=== PATIENT | female | born 1950 | race Caucasian/White ===

== ENCOUNTER 2018-04-11 10:54 | Emergency (ER) | payer MEDICARE, MEDICAID ==
[~2018-04-11] VITALS: Ht 162.6 cm; Wt 70.0 kg
[~2018-04-11 10:54] MED LIST: ATOR40TA70 PO; INSHUMSS SUBCUT; Lantus SQ; METF-414 PO
[2018-04-11 12:00] LABS: BASOPHILS % 0.7 % (0.0-2.0); EOSINOPHILS % 2.2 % (0.0-5.0); HEMATOCRIT. 33.7 % (36.0-48.0); HEMOGLOBIN. 11.3 g/dL (12.0-16.0); LYMPHOCYTES % 30.2 % (20.0-50.0); MEAN CORPUSCULAR HEMOGLOBIN 29.2 pg (28.0-32.0); MEAN CORPUSCULAR VOLUME 87.3 fL (81.0-99.0); MEAN PLATELET VOLUME 8.9 fl (7.4-10.4); MONOCYTES % 6.8 % (2.0-8.0); NEUTROPHILS % 60.1 % (40.0-76.0); PLATELET 306 x1000/uL (130-400); RED BLOOD CELL COUNT 3.86 mill/uL (4.2-5.4); RED CELL DISTRIBUTION WIDTH 13.3 % (11.6-14.6)
[2018-04-11 12:02] LABS: CHLORIDE 104 mEq/L (98-107)
[2018-04-11 21:17] VITALS: BP 134/57
== END 2018-04-11 21:19 | disposition home or self-care (01) ==
LOC: ER 10:54
DX: E11.649 Type 2 diabetes mellitus with hypoglycemia without coma (principal); T38.3X5A Adverse effect of insulin and oral hypoglycemic [antidiabetic] drugs, initial encounter; Z79.4 Long term (current) use of insulin; Y92.89 Other specified places as the place of occurrence of the external cause; I10 Essential (primary) hypertension
CPT/HCPCS: 36415; 71045; 82962; 83880; 84484; 93005; 99284

== ENCOUNTER 2018-04-15 10:39 | Inpatient (IN) | payer MEDICARE, MEDICAID ==
[2018-04-15] VITALS (32 sets, daily range): BP systolic 101–160; BP diastolic 56–88
[~2018-04-15] VITALS: Ht 167.6 cm; Wt 80.1 kg
[~2018-04-15 10:39] MED LIST changes: +ETOMIDATE 2MG/ML 10ML VIAL IV ONE; +SUCCINYLCHOLINE CHLORIDE 200MG/10ML IV ONE
[2018-04-15] MEDS ORDERED: DEXTROSE 50% WATER 50ML SYRINGE IV ONE ×4 (10:50→15:52)
[2018-04-15] MEDS ORDERED: DEXT 5%/0.45% NACL KCL 20MEQ/L 1,000 ML IV ONE (10:56)
[2018-04-15] MEDS ORDERED: LORAZEPAM 2MG/ML CPJ IV PRN ×3 (11:15→16:00)
[2018-04-15] MEDS ORDERED: SODIUM CHLORIDE 0.9% 1,000 ML IV ONE (11:30)
[2018-04-15 11:35] LABS: BASOPHILS % 0.2 % (0.0-2.0); EOSINOPHILS % 0.2 % (0.0-5.0); HEMATOCRIT. 34.9 % (36.0-48.0); HEMOGLOBIN. 11.8 g/dL (12.0-16.0); LYMPHOCYTES % 10.2 % (20.0-50.0); MEAN CORPUSCULAR HEMOGLOBIN 29.6 pg (28.0-32.0); MEAN CORPUSCULAR VOLUME 87.8 fL (81.0-99.0); MEAN PLATELET VOLUME 8.2 fl (7.4-10.4); MONOCYTES % 4.8 % (2.0-8.0); NEUTROPHILS % 84.6 % (40.0-76.0); PLATELET 336 x1000/uL (130-400); RED BLOOD CELL COUNT 3.98 mill/uL (4.2-5.4); RED CELL DISTRIBUTION WIDTH 13.1 % (11.6-14.6)
[2018-04-15 11:37] LABS: CHLORIDE 104 mEq/L (98-107)
[2018-04-15] MEDS ORDERED: FENTANYL IV ONE (11:45)
[2018-04-15] MEDS ORDERED: FENTANYL CITRATE/PF 50MCG/ML 2ML VIAL IV ONE (11:45)
[2018-04-15] MEDS ORDERED: SODIUM CHLORIDE 0.9% IV ONE (11:45)
[2018-04-15] MEDS ORDERED: ETOMIDATE 2MG/ML 10ML VIAL IV ONE (11:45)
[2018-04-15] MEDS ORDERED: SUCCINYLCHOLINE CHLORIDE 200MG/10ML IV ONE (11:45)
[2018-04-15] MEDS ORDERED: PROPOFOL 10MG/ML 100ML 100 ML IV ONE (11:45)
[2018-04-15 11:46] LABS: CREATINE KINASE 238 IU/L (26-192)
[2018-04-15 12:54] LABS: BG BASE EXCESS -1.2 mmol/L (-2.0-2.0); BG CARBOXYHEMOGLOBIN 0.3 % (0.5-1.5); BG FRACTION INSPIRED OXYGEN 50; BG METHEMOGLOBIN 0.2 % (0.0-1.5); BG OXYHEMOGLOBIN 98.5 % (94.0-97.0); BG PCO2 27.4 mmHg (35.0-45.0); BG PH 7.503 (7.350-7.450); BG PO2 229.9 mmHg (75.0-100.0); BG SAMPLE SITE RIGHT RADIAL; BG TIDAL VOLUME(mL) 500 mL; BG TOTAL HEMOGLOBIN 10.9 g/dL (12.0-18.0); BG VENT MODE VENT - A/C; BG VENT RATE 14 set
[2018-04-15 13:14] LABS: CLARITY URINE CLOUDY (CLEAR); COLOR URINE YELLOW (YELLOW); KETONES URINE NEGATIVE (NEGATIVE); LEUKOCYTE ESTERASE URINE TRACE (NEGATIVE); NITRITE URINE NEGATIVE (NEGATIVE); OCCULT BLOOD URINE TRACE (NEGATIVE); PH URINE 6.5 (4.5-8.0); PROTEIN URINE TRACE (NEGATIVE); SPECIFIC GRAVITY URINE 1.015 (1.005-1.030); UROBILINOGEN URINE 0.2 E.U./dL (0.2-1.0)
[2018-04-15] MEDS ORDERED: DEXT 5%/0.45% NACL 1000ML 1,000 ML IV SCH (15:56)
[2018-04-15] MEDS ORDERED: DIPHENHYDRAMINE 50MG/ML VIAL IV PRN (16:00)
[2018-04-15] MEDS ORDERED: ONDANSETRON HCL 4MG/2ML INJ IV PRN (16:00)
[2018-04-15] MEDS ORDERED: HYDROCODONE/ACETAMINOPHEN 5/325MG TABLET PO PRN (16:00)
[2018-04-15] MEDS ORDERED: DOCUSATE SODIUM 100MG CAPSULE PO PRN (16:00)
[2018-04-15] MEDS: BLOOD SUGAR DIAGNOSTIC STRIP TEST SCH ×7 (16:00→22:06)
[2018-04-15] MEDS ORDERED: ACETAMINOPHEN 325MG TABLET PO PRN (16:00)
[2018-04-15] MEDS ORDERED: MAGNESIUM/ALUMINUM HYDROXIDE/SIMETHICONE 30ML UDC PO PRN (16:00)
[2018-04-15] MEDS ORDERED: DEXTROSE 50% WATER 50ML SYRINGE IV PRN ×2 (16:00)
[2018-04-15] MEDS ORDERED: HYDROMORPHONE HCL/PF 2MG/ML CPJ IV PRN (16:00)
[2018-04-15] MEDS ORDERED: NA PHOS,M-B/NA PHOS,DI-BA ENEMA 118ML PR PRN (16:00)
[2018-04-15] MEDS ORDERED: GUAIFENESIN 200MG/10ML SUGAR FREE UDC PO PRN (16:00)
[2018-04-15 16:26] LABS: BG BASE EXCESS 0.1 mmol/L (-2.0-2.0); BG DEOXYHEMOGLOBIN 1.1 % (0.0-5.0); BG FRACTION INSPIRED OXYGEN 30; BG HCO3 ACT 22.5 mmol/L (22.0-26.0); BG METHEMOGLOBIN 0.3 % (0.0-1.5); BG OXYGEN SATURATION 98.9 % (92.0-98.5); BG OXYHEMOGLOBIN 98.6 % (94.0-97.0); BG PCO2 29.4 mmHg (35.0-45.0); BG PH 7.502 (7.350-7.450); BG PO2 144.2 mmHg (75.0-100.0); BG SAMPLE SITE RIGHT RADIAL; BG TIDAL VOLUME(mL) 500 mL; BG TOTAL HEMOGLOBIN 11.2 g/dL (12.0-18.0); BG VENT MODE VENT - A/C; BG VENT RATE 12 set
[2018-04-15 17:35] LABS: CHLORIDE 105 mEq/L (98-107)
[2018-04-15] MEDS: THIAMINE HCL 100MG TABLET PO SCH (18:10)
[2018-04-15] MEDS: PANTOPRAZOLE SODIUM 40 MG/VIAL IV SCH (18:10)
[2018-04-15] MEDS: ENOXAPARIN 40MG/0.4ML SYR SUBCUT SCH (18:11)
[2018-04-15] MEDS: DEXT 10% WATER 1,000 ML IV SCH (18:22)
[2018-04-15] MEDS: LEVOFLOXACIN 500MG PREMIX 100 ML IV SCH (19:55)
[2018-04-15] MEDS ORDERED: VANCOMYCIN 1500MG in DEXTROSE 5% WATER 250ML IV NR (20:00)
[2018-04-15] MEDS: PROPOFOL 10MG/ML 100ML 100 ML IV PRN (22:06)
[2018-04-16] VITALS (48 sets, daily range): BP systolic 111–171; BP diastolic 41–87
[2018-04-16] MEDS ORDERED: BLOOD SUGAR DIAGNOSTIC STRIP TEST SCH ×3 (02:00→08:00)
[2018-04-16] MEDS: DEXT 10% WATER 1,000 ML IV SCH (04:45)
[2018-04-16] MEDS: PROPOFOL 10MG/ML 100ML 100 ML IV PRN (05:28)
[2018-04-16 06:11] LABS: BASOPHILS % 0.4 % (0.0-2.0); EOSINOPHILS % 1.6 % (0.0-5.0); HEMATOCRIT. 31.8 % (36.0-48.0); HEMOGLOBIN. 10.8 g/dL (12.0-16.0); LYMPHOCYTES % 18.3 % (20.0-50.0); MEAN CORPUSCULAR HEMOGLOBIN 29.5 pg (28.0-32.0); MEAN PLATELET VOLUME 8.3 fl (7.4-10.4); MONOCYTES % 8.3 % (2.0-8.0); NEUTROPHILS % 71.4 % (40.0-76.0); PLATELET 285 x1000/uL (130-400); RED BLOOD CELL COUNT 3.66 mill/uL (4.2-5.4); RED CELL DISTRIBUTION WIDTH 13.2 % (11.6-14.6)
[2018-04-16 06:18] LABS: CHLORIDE 103 mEq/L (98-107)
[2018-04-16 06:28] LABS: LDL CHOLESTEROL 38 mg/dL (5-100)
[2018-04-16 06:29] LABS: HDL CHOLESTEROL 50 mg/dL (40-59)
[2018-04-16 06:30] LABS: T4 FREE 1.27 ng/dL (0.76-1.46)
[2018-04-16] MEDS: ALBUTEROL (0.083%) 2.5MG/3ML NEB HHN SCH ×3 (08:00→20:36)
[2018-04-16 08:39] LABS: BG BASE EXCESS -0.4 mmol/L (-2.0-2.0); BG CARBOXYHEMOGLOBIN 0.3 % (0.5-1.5); BG DEOXYHEMOGLOBIN 1.5 % (0.0-5.0); BG FRACTION INSPIRED OXYGEN 30; BG HCO3 ACT 22.6 mmol/L (22.0-26.0); BG METHEMOGLOBIN 0.1 % (0.0-1.5); BG OXYGEN SATURATION 98.5 % (92.0-98.5); BG OXYHEMOGLOBIN 98.1 % (94.0-97.0); BG PCO2 31.4 mmHg (35.0-45.0); BG PH 7.475 (7.350-7.450); BG PO2 149.1 mmHg (75.0-100.0); BG SAMPLE SITE RIGHT RADIAL; BG TIDAL VOLUME(mL) 500 mL; BG TOTAL HEMOGLOBIN 10.9 g/dL (12.0-18.0); BG VENT MODE VENT - A/C; BG VENT RATE 12 set
[2018-04-16] MEDS ORDERED: VANCOMYCIN 1 G PREMIX 200 ML IV SCH (09:00)
[2018-04-16] MEDS: PANTOPRAZOLE SODIUM 40 MG/VIAL IV SCH (09:40)
[2018-04-16] MEDS: ASPIRIN 81MG EC TABLET PO SCH (09:40)
[2018-04-16] MEDS: VANCOMYCIN 1 G PREMIX 200 ML IV SCH ×2 (09:41→21:06)
[2018-04-16] MEDS: THIAMINE HCL 100MG TABLET PO SCH ×2 (09:46→19:07)
[2018-04-16] MEDS ORDERED: PROPOFOL 10MG/ML 100ML 100 ML IV PRN (11:30)
[2018-04-16] MEDS: BLOOD SUGAR DIAGNOSTIC STRIP TEST SCH ×3 (12:10→20:42)
[2018-04-16 15:00] LABS: LDL CHOLESTEROL 44 mg/dL (5-100)
[2018-04-16 15:02] LABS: CREATINE KINASE 575 IU/L (26-192)
[2018-04-16 15:03] LABS: HDL CHOLESTEROL 47 mg/dL (40-59)
[2018-04-16 15:04] LABS: CREATINE KINASE MB FRACTION 6.6 ng/mL (0.5-3.6)
[2018-04-16] MEDS ORDERED: DEXT 5%/0.45% NACL 1000ML 1,000 ML IV SCH (16:30)
[2018-04-16] MEDS: ENOXAPARIN 40MG/0.4ML SYR SUBCUT SCH (19:07)
[2018-04-16] MEDS: LEVOFLOXACIN 500MG PREMIX 100 ML IV SCH (19:44)
[2018-04-16] MEDS: ACETAMINOPHEN 650MG/20.3ML UDC PO PRN (20:03)
[2018-04-16] MEDS: SODIUM CHLORIDE 0.45% 1,000 ML IV SCH (21:04)
[2018-04-16 23:40] LABS: CREATINE KINASE 413 IU/L (26-192)
[2018-04-16 23:41] LABS: CREATINE KINASE MB FRACTION 2.7 ng/mL (0.5-3.6)
[2018-04-17] VITALS (47 sets, daily range): BP systolic 102–166; BP diastolic 56–84
[2018-04-17] MEDS: ALBUTEROL (0.083%) 2.5MG/3ML NEB HHN SCH ×4 (00:49→19:48)
[2018-04-17] MEDS: BLOOD SUGAR DIAGNOSTIC STRIP TEST SCH ×6 (04:00→23:47)
[2018-04-17 06:11] LABS: BASOPHILS % 0.3 % (0.0-2.0); EOSINOPHILS % 1.3 % (0.0-5.0); HEMATOCRIT. 32.1 % (36.0-48.0); HEMOGLOBIN. 10.8 g/dL (12.0-16.0); LYMPHOCYTES % 16.6 % (20.0-50.0); MEAN CORPUSCULAR HEMOGLOBIN 29.3 pg (28.0-32.0); MEAN CORPUSCULAR VOLUME 86.8 fL (81.0-99.0); MEAN PLATELET VOLUME 8.3 fl (7.4-10.4); MONOCYTES % 6.2 % (2.0-8.0); NEUTROPHILS % 75.6 % (40.0-76.0); PLATELET 294 x1000/uL (130-400); RED BLOOD CELL COUNT 3.69 mill/uL (4.2-5.4); RED CELL DISTRIBUTION WIDTH 12.7 % (11.6-14.6)
[2018-04-17] MEDS: ACETAMINOPHEN 650MG/20.3ML UDC PO PRN (06:16)
[2018-04-17 06:23] LABS: CHLORIDE 106 mEq/L (98-107)
[2018-04-17 06:31] LABS: CREATINE KINASE 345 IU/L (26-192)
[2018-04-17] MEDS ORDERED: DEXTROSE 50% WATER 50ML SYRINGE IV PRN (08:00)
[2018-04-17] MEDS: PANTOPRAZOLE SODIUM 40 MG/VIAL IV SCH (08:39)
[2018-04-17] MEDS: ASPIRIN 81MG EC TABLET PO SCH (08:39)
[2018-04-17] MEDS: VANCOMYCIN 1 G PREMIX 200 ML IV SCH ×2 (08:39→20:40)
[2018-04-17] MEDS: THIAMINE HCL 100MG TABLET PO SCH ×2 (08:39→17:03)
[2018-04-17] MEDS ORDERED: LORAZEPAM 2MG/ML CPJ IV PRN (10:30)
[2018-04-17] MEDS: INSULIN GLARGINE UD 100 UNITS/ML SYR SUBCUT SCH (11:17)
[2018-04-17] MEDS: INSULIN LISPRO 100 UNITS/ML SUBCUT SCH ×3 (12:12→23:50)
[2018-04-17] MEDS: SODIUM CHLORIDE 0.45% 1,000 ML IV SCH (12:58)
[2018-04-17] MEDS: ENOXAPARIN 40MG/0.4ML SYR SUBCUT SCH (17:03)
[2018-04-17] MEDS: LEVOFLOXACIN 500MG PREMIX 100 ML IV SCH (19:49)
[2018-04-18] VITALS (31 sets, daily range): BP systolic 129–176; BP diastolic 62–82
[2018-04-18] MEDS: ALBUTEROL (0.083%) 2.5MG/3ML NEB HHN SCH ×5 (02:05→22:27)
[2018-04-18] MEDS: SODIUM CHLORIDE 0.45% 1,000 ML IV SCH ×3 (06:32→23:58)
[2018-04-18] MEDS: BLOOD SUGAR DIAGNOSTIC STRIP TEST SCH ×3 (06:32→17:18)
[2018-04-18] MEDS: INSULIN LISPRO 100 UNITS/ML SUBCUT SCH ×3 (06:33→17:24)
[2018-04-18 08:09] LABS: BG BASE EXCESS 0.7 mmol/L (-2.0-2.0); BG CARBOXYHEMOGLOBIN 0.3 % (0.5-1.5); BG DEOXYHEMOGLOBIN 1.7 % (0.0-5.0); BG FRACTION INSPIRED OXYGEN 30; BG HCO3 ACT 23.6 mmol/L (22.0-26.0); BG METHEMOGLOBIN 0.2 % (0.0-1.5); BG OXYGEN SATURATION 98.3 % (92.0-98.5); BG OXYHEMOGLOBIN 97.8 % (94.0-97.0); BG PCO2 30.9 mmHg (35.0-45.0); BG PO2 139.8 mmHg (75.0-100.0); BG SAMPLE SITE RIGHT RADIAL; BG TIDAL VOLUME(mL) 500 mL; BG TOTAL HEMOGLOBIN 8.8 g/dL (12.0-18.0); BG VENT MODE VENT - A/C; BG VENT RATE 12 set
[2018-04-18] MEDS: PANTOPRAZOLE SODIUM 40 MG/VIAL IV SCH (09:13)
[2018-04-18] MEDS: ASPIRIN 81MG EC TABLET PO SCH (09:14)
[2018-04-18] MEDS: THIAMINE HCL 100MG TABLET PO SCH ×2 (09:14→17:23)
[2018-04-18] MEDS: VANCOMYCIN 1 G PREMIX 200 ML IV SCH ×2 (09:15→21:49)
[2018-04-18] MEDS: INSULIN GLARGINE UD 100 UNITS/ML SYR SUBCUT SCH (10:27)
[2018-04-18] MEDS: ENOXAPARIN 40MG/0.4ML SYR SUBCUT SCH (17:23)
[2018-04-18] MEDS: LEVOFLOXACIN 500MG PREMIX 100 ML IV SCH (21:48)
[2018-04-19] VITALS (22 sets, daily range): BP systolic 114–159; BP diastolic 54–81
[2018-04-19] MEDS: INSULIN LISPRO 100 UNITS/ML SUBCUT SCH ×4 (00:35→18:10)
[2018-04-19] MEDS: BLOOD SUGAR DIAGNOSTIC STRIP TEST SCH ×4 (06:00→17:53)
[2018-04-19 07:13] LABS: CHLORIDE 106 mEq/L (98-107)
[2018-04-19 08:01] LABS: BG BASE EXCESS 0.3 mmol/L (-2.0-2.0); BG CARBOXYHEMOGLOBIN 0.3 % (0.5-1.5); BG DEOXYHEMOGLOBIN 1.6 % (0.0-5.0); BG FRACTION INSPIRED OXYGEN 30; BG HCO3 ACT 23.9 mmol/L (22.0-26.0); BG METHEMOGLOBIN 0.3 % (0.0-1.5); BG OXYGEN SATURATION 98.4 % (92.0-98.5); BG OXYHEMOGLOBIN 97.8 % (94.0-97.0); BG PCO2 35.2 mmHg (35.0-45.0); BG PO2 130.8 mmHg (75.0-100.0); BG SAMPLE SITE RIGHT BRACHIAL; BG TIDAL VOLUME(mL) 500 mL; BG TOTAL HEMOGLOBIN 11.5 g/dL (12.0-18.0); BG VENT MODE VENT - A/C; BG VENT RATE 10 set
[2018-04-19] MEDS: ALBUTEROL (0.083%) 2.5MG/3ML NEB HHN SCH ×3 (08:06→20:41)
[2018-04-19 08:25] LABS: BASOPHILS % 0.3 % (0.0-2.0); HEMATOCRIT. 27.2 % (36.0-48.0); HEMOGLOBIN. 9.2 g/dL (12.0-16.0); LYMPHOCYTES % 16.3 % (20.0-50.0); MEAN CORPUSCULAR HEMOGLOBIN 29.5 pg (28.0-32.0); MEAN CORPUSCULAR VOLUME 87.5 fL (81.0-99.0); MEAN PLATELET VOLUME 8.4 fl (7.4-10.4); MONOCYTES % 5.1 % (2.0-8.0); NEUTROPHILS % 75.3 % (40.0-76.0); PLATELET 291 x1000/uL (130-400); RED BLOOD CELL COUNT 3.11 mill/uL (4.2-5.4); RED CELL DISTRIBUTION WIDTH 12.7 % (11.6-14.6)
[2018-04-19] MEDS: VANCOMYCIN 1 G PREMIX 200 ML IV SCH ×2 (08:37→21:00)
[2018-04-19] MEDS: PANTOPRAZOLE SODIUM 40 MG/VIAL IV SCH (08:37)
[2018-04-19] MEDS: THIAMINE HCL 100MG TABLET PO SCH ×2 (08:37→18:11)
[2018-04-19] MEDS: ASPIRIN 81MG EC TABLET PO SCH (08:37)
[2018-04-19] MEDS: INSULIN GLARGINE UD 100 UNITS/ML SYR SUBCUT SCH (10:06)
[2018-04-19] MEDS: SODIUM CHLORIDE 0.45% 1,000 ML IV SCH ×2 (15:40→19:53)
[2018-04-19] MEDS: ENOXAPARIN 40MG/0.4ML SYR SUBCUT SCH (18:11)
[2018-04-19] MEDS: LEVOFLOXACIN 500MG PREMIX 100 ML IV SCH (19:30)
[2018-04-20] VITALS (23 sets, daily range): BP systolic 105–166; BP diastolic 69–84
[2018-04-20] MEDS: ALBUTEROL (0.083%) 2.5MG/3ML NEB HHN SCH ×2 (01:47→20:05)
[2018-04-20] MEDS: BLOOD SUGAR DIAGNOSTIC STRIP TEST SCH ×4 (05:30→17:27)
[2018-04-20] MEDS: INSULIN LISPRO 100 UNITS/ML SUBCUT SCH ×4 (05:47→18:03)
[2018-04-20 08:06] LABS: BASOPHILS % 0.7 % (0.0-2.0); EOSINOPHILS % 2.7 % (0.0-5.0); HEMATOCRIT. 29.8 % (36.0-48.0); MEAN CORPUSCULAR HEMOGLOBIN 29.2 pg (28.0-32.0); MEAN CORPUSCULAR VOLUME 87.5 fL (81.0-99.0); MEAN PLATELET VOLUME 8.7 fl (7.4-10.4); NEUTROPHILS % 72.6 % (40.0-76.0); PLATELET 312 x1000/uL (130-400); RED BLOOD CELL COUNT 3.41 mill/uL (4.2-5.4); RED CELL DISTRIBUTION WIDTH 12.7 % (11.6-14.6)
[2018-04-20 08:11] LABS: CHLORIDE 103 mEq/L (98-107)
[2018-04-20 08:48] LABS: BG BASE EXCESS 0.5 mmol/L (-2.0-2.0); BG CARBOXYHEMOGLOBIN 0.3 % (0.5-1.5); BG DEOXYHEMOGLOBIN 1.5 % (0.0-5.0); BG FRACTION INSPIRED OXYGEN 30; BG HCO3 ACT 22.6 mmol/L (22.0-26.0); BG METHEMOGLOBIN 0.4 % (0.0-1.5); BG OXYGEN SATURATION 98.5 % (92.0-98.5); BG OXYHEMOGLOBIN 97.8 % (94.0-97.0); BG PCO2 27.7 mmHg (35.0-45.0); BG PH 7.529 (7.350-7.450); BG PO2 125.4 mmHg (75.0-100.0); BG SAMPLE SITE RIGHT RADIAL; BG TIDAL VOLUME(mL) 500 mL; BG TOTAL HEMOGLOBIN 9.5 g/dL (12.0-18.0); BG VENT MODE VENT - A/C; BG VENT RATE 10 set
[2018-04-20] MEDS: PANTOPRAZOLE SODIUM 40 MG/VIAL IV SCH (10:56)
[2018-04-20] MEDS: ASPIRIN 81MG EC TABLET PO SCH (10:57)
[2018-04-20] MEDS: INSULIN GLARGINE UD 100 UNITS/ML SYR SUBCUT SCH (10:57)
[2018-04-20] MEDS: THIAMINE HCL 100MG TABLET PO SCH ×2 (10:57→18:02)
[2018-04-20] MEDS: ENOXAPARIN 40MG/0.4ML SYR SUBCUT SCH (18:02)
[2018-04-20] MEDS: SODIUM CHLORIDE 0.45% 1,000 ML IV SCH (18:04)
[2018-04-20] MEDS: LEVOFLOXACIN 500MG PREMIX 100 ML IV SCH (19:30)
[2018-04-20] MEDS: VANCOMYCIN 1 G PREMIX 200 ML IV SCH (20:00)
[2018-04-21] VITALS (24 sets, daily range): BP systolic 133–170; BP diastolic 68–91
[2018-04-21] MEDS: BLOOD SUGAR DIAGNOSTIC STRIP TEST SCH ×4 (00:16→17:53)
[2018-04-21] MEDS: INSULIN LISPRO 100 UNITS/ML SUBCUT SCH ×4 (00:18→17:49)
[2018-04-21] MEDS: ALBUTEROL (0.083%) 2.5MG/3ML NEB HHN SCH ×4 (01:52→20:43)
[2018-04-21 05:43] LABS: BASOPHILS % 0.4 % (0.0-2.0); EOSINOPHILS % 3.2 % (0.0-5.0); HEMATOCRIT. 27.6 % (36.0-48.0); HEMOGLOBIN. 9.3 g/dL (12.0-16.0); LYMPHOCYTES % 17.6 % (20.0-50.0); MEAN CORPUSCULAR HEMOGLOBIN 29.3 pg (28.0-32.0); MEAN CORPUSCULAR VOLUME 86.4 fL (81.0-99.0); MEAN PLATELET VOLUME 8.1 fl (7.4-10.4); MONOCYTES % 6.2 % (2.0-8.0); NEUTROPHILS % 72.6 % (40.0-76.0); PLATELET 307 x1000/uL (130-400); RED BLOOD CELL COUNT 3.19 mill/uL (4.2-5.4); RED CELL DISTRIBUTION WIDTH 12.5 % (11.6-14.6)
[2018-04-21 05:51] LABS: CHLORIDE 104 mEq/L (98-107)
[2018-04-21] MEDS: THIAMINE HCL 100MG TABLET PO SCH ×2 (08:47→17:06)
[2018-04-21] MEDS: PANTOPRAZOLE SODIUM 40 MG/VIAL IV SCH (08:47)
[2018-04-21] MEDS: ASPIRIN 81MG EC TABLET PO SCH (08:47)
[2018-04-21] MEDS: INSULIN GLARGINE UD 100 UNITS/ML SYR SUBCUT SCH (10:16)
[2018-04-21] MEDS: SODIUM CHLORIDE 0.45% 1,000 ML IV SCH (10:17)
[2018-04-21] MEDS: IPRATROPIUM/ALBUTEROL 0.5-3(2.5)MG/3ML NEB INH PRN (12:29)
[2018-04-21] MEDS: VANCOMYCIN 1 G PREMIX 200 ML IV SCH (13:36)
[2018-04-21] MEDS: ENOXAPARIN 40MG/0.4ML SYR SUBCUT SCH (17:06)
[2018-04-21] MEDS: LEVOFLOXACIN 500MG PREMIX 100 ML IV SCH (18:42)
[2018-04-22] VITALS (25 sets, daily range): BP systolic 107–166; BP diastolic 57–81
[2018-04-22] MEDS: BLOOD SUGAR DIAGNOSTIC STRIP TEST SCH ×4 (00:29→17:50)
[2018-04-22] MEDS: INSULIN LISPRO 100 UNITS/ML SUBCUT SCH ×4 (00:31→17:56)
[2018-04-22] MEDS: ALBUTEROL (0.083%) 2.5MG/3ML NEB HHN SCH ×4 (01:45→20:55)
[2018-04-22] MEDS: PANTOPRAZOLE SODIUM 40 MG/VIAL IV SCH (08:42)
[2018-04-22] MEDS: THIAMINE HCL 100MG TABLET PO SCH ×2 (08:42→16:31)
[2018-04-22] MEDS: ASPIRIN 81MG EC TABLET PO SCH (08:42)
[2018-04-22 08:44] LABS: BG BASE EXCESS -0.7 mmol/L (-2.0-2.0); BG CARBOXYHEMOGLOBIN 0.3 % (0.5-1.5); BG DEOXYHEMOGLOBIN 1.6 % (0.0-5.0); BG FRACTION INSPIRED OXYGEN 30; BG HCO3 ACT 21.5 mmol/L (22.0-26.0); BG OXYGEN SATURATION 98.4 % (92.0-98.5); BG OXYHEMOGLOBIN 98.1 % (94.0-97.0); BG PCO2 27.3 mmHg (35.0-45.0); BG PH 7.514 (7.350-7.450); BG PO2 128.9 mmHg (75.0-100.0); BG PRESSURE SUPPORT 12; BG SAMPLE SITE RIGHT BRACHIAL; BG TIDAL VOLUME(mL) 500 mL; BG TOTAL HEMOGLOBIN 10.1 g/dL (12.0-18.0); BG VENT MODE VENT - SIMV; BG VENT RATE 10 set
[2018-04-22] MEDS: VANCOMYCIN 1 G PREMIX 200 ML IV SCH (09:49)
[2018-04-22] MEDS: INSULIN GLARGINE UD 100 UNITS/ML SYR SUBCUT SCH (10:33)
[2018-04-22] MEDS: METOCLOPRAMIDE HCL 10MG/2ML VIAL IV SCH ×3 (11:43→23:45)
[2018-04-22] MEDS: SODIUM CHLORIDE 0.45% 1,000 ML IV SCH (16:31)
[2018-04-22] MEDS: ENOXAPARIN 40MG/0.4ML SYR SUBCUT SCH (16:31)
[2018-04-22] MEDS: LEVOFLOXACIN 500MG PREMIX 100 ML IV SCH (22:02)
[2018-04-22] MEDS: VANCOMYCIN 750 MG PREMIX 150 ML IV SCH (22:02)
[2018-04-23] VITALS (27 sets, daily range): BP systolic 128–156; BP diastolic 63–79
[2018-04-23] MEDS: INSULIN LISPRO 100 UNITS/ML SUBCUT SCH ×4 (00:45→17:52)
[2018-04-23] MEDS: ALBUTEROL (0.083%) 2.5MG/3ML NEB HHN SCH ×3 (02:35→20:23)
[2018-04-23] MEDS: SODIUM CHLORIDE 0.45% 1,000 ML IV SCH ×2 (03:00→08:49)
[2018-04-23 05:38] LABS: BASOPHILS % 0.8 % (0.0-2.0); EOSINOPHILS % 2.4 % (0.0-5.0); HEMATOCRIT. 28.7 % (36.0-48.0); HEMOGLOBIN. 9.9 g/dL (12.0-16.0); LYMPHOCYTES % 18.3 % (20.0-50.0); MEAN CORPUSCULAR HEMOGLOBIN 29.8 pg (28.0-32.0); MEAN CORPUSCULAR VOLUME 86.1 fL (81.0-99.0); MEAN PLATELET VOLUME 7.7 fl (7.4-10.4); MONOCYTES % 9.6 % (2.0-8.0); NEUTROPHILS % 68.9 % (40.0-76.0); PLATELET 368 x1000/uL (130-400); RED BLOOD CELL COUNT 3.33 mill/uL (4.2-5.4); RED CELL DISTRIBUTION WIDTH 12.7 % (11.6-14.6)
[2018-04-23 05:54] LABS: CHLORIDE 103 mEq/L (98-107)
[2018-04-23] MEDS: BLOOD SUGAR DIAGNOSTIC STRIP TEST SCH ×4 (07:00→17:46)
[2018-04-23] MEDS: METOCLOPRAMIDE HCL 10MG/2ML VIAL IV SCH ×3 (07:36→17:51)
[2018-04-23] MEDS: THIAMINE HCL 100MG TABLET PO SCH ×2 (08:49→16:35)
[2018-04-23] MEDS: ASPIRIN 81MG EC TABLET PO SCH (08:49)
[2018-04-23] MEDS: PANTOPRAZOLE SODIUM 40 MG/VIAL IV SCH (08:49)
[2018-04-23] MEDS: VANCOMYCIN 750 MG PREMIX 150 ML IV SCH ×2 (08:49→21:15)
[2018-04-23 09:04] LABS: BG BASE EXCESS -1.4 mmol/L (-2.0-2.0); BG CARBOXYHEMOGLOBIN 0.2 % (0.5-1.5); BG DEOXYHEMOGLOBIN 2.6 % (0.0-5.0); BG FRACTION INSPIRED OXYGEN 30; BG HCO3 ACT 21.5 mmol/L (22.0-26.0); BG METHEMOGLOBIN 0.5 % (0.0-1.5); BG OXYGEN SATURATION 97.4 % (92.0-98.5); BG OXYHEMOGLOBIN 96.7 % (94.0-97.0); BG PCO2 29.2 mmHg (35.0-45.0); BG PH 7.485 (7.350-7.450); BG PO2 94.3 mmHg (75.0-100.0); BG PRESSURE SUPPORT 12; BG SAMPLE SITE RIGHT RADIAL; BG TIDAL VOLUME(mL) 500 mL; BG TOTAL HEMOGLOBIN 8.8 g/dL (12.0-18.0); BG VENT MODE VENT - SIMV; BG VENT RATE 10 set
[2018-04-23] MEDS: INSULIN GLARGINE UD 100 UNITS/ML SYR SUBCUT SCH (10:20)
[2018-04-23 13:01] LABS: TOTAL IRON BINDING CAPACITY 183 ug/dL (250-450)
[2018-04-24] VITALS (44 sets, daily range): BP systolic 113–168; BP diastolic 57–86
[2018-04-24] MEDS: METOCLOPRAMIDE HCL 10MG/2ML VIAL IV SCH ×4 (00:38→17:17)
[2018-04-24] MEDS: BLOOD SUGAR DIAGNOSTIC STRIP TEST SCH ×4 (00:38→16:53)
[2018-04-24] MEDS: ALBUTEROL (0.083%) 2.5MG/3ML NEB HHN SCH ×5 (02:37→20:26)
[2018-04-24] MEDS: INSULIN LISPRO 100 UNITS/ML SUBCUT SCH ×4 (06:00→16:53)
[2018-04-24 06:13] LABS: BASOPHILS % 0.8 % (0.0-2.0); EOSINOPHILS % 2.8 % (0.0-5.0); HEMATOCRIT. 29.9 % (36.0-48.0); HEMOGLOBIN. 10.1 g/dL (12.0-16.0); LYMPHOCYTES % 20.6 % (20.0-50.0); MEAN CORPUSCULAR HEMOGLOBIN 29.4 pg (28.0-32.0); MEAN CORPUSCULAR VOLUME 86.8 fL (81.0-99.0); MEAN PLATELET VOLUME 7.8 fl (7.4-10.4); MONOCYTES % 8.6 % (2.0-8.0); NEUTROPHILS % 67.2 % (40.0-76.0); PLATELET 444 x1000/uL (130-400); RED BLOOD CELL COUNT 3.44 mill/uL (4.2-5.4); RED CELL DISTRIBUTION WIDTH 12.6 % (11.6-14.6)
[2018-04-24 06:40] LABS: INR 1.1; PROTHROMBIN TIME 10.8 sec (9.1-11.1)
[2018-04-24 07:34] LABS: CHLORIDE 103 mEq/L (98-107)
[2018-04-24 07:42] LABS: BG BASE EXCESS -4.6 mmol/L (-2.0-2.0); BG CARBOXYHEMOGLOBIN 0.3 % (0.5-1.5); BG DEOXYHEMOGLOBIN 2.1 % (0.0-5.0); BG FRACTION INSPIRED OXYGEN 30; BG HCO3 ACT 16.3 mmol/L (22.0-26.0); BG METHEMOGLOBIN 0.5 % (0.0-1.5); BG OXYGEN SATURATION 97.9 % (92.0-98.5); BG OXYHEMOGLOBIN 97.1 % (94.0-97.0); BG PCO2 19.4 mmHg (35.0-45.0); BG PH 7.542 (7.350-7.450); BG SAMPLE SITE RIGHT BRACHIAL; BG TIDAL VOLUME(mL) 500 mL; BG TOTAL HEMOGLOBIN 10.2 g/dL (12.0-18.0); BG VENT MODE VENT - A/C; BG VENT RATE 8 set
[2018-04-24] MEDS: THIAMINE HCL 100MG TABLET PO SCH ×2 (08:04→16:03)
[2018-04-24] MEDS: ASPIRIN 81MG EC TABLET PO SCH (08:04)
[2018-04-24] MEDS: VANCOMYCIN 750 MG PREMIX 150 ML IV SCH ×2 (08:42→20:31)
[2018-04-24] MEDS: PANTOPRAZOLE SODIUM 40 MG/VIAL IV SCH (08:42)
[2018-04-24] MEDS: SODIUM CHLORIDE 0.45% 1,000 ML IV SCH (10:23)
[2018-04-24] MEDS: INSULIN GLARGINE UD 100 UNITS/ML SYR SUBCUT SCH (10:24)
[2018-04-24] MEDS ORDERED: FENTANYL CITRATE/PF 50MCG/ML 2ML VIAL ONE (16:53)
[2018-04-24] MEDS ORDERED: MIDAZOLAM HCL 5 MG/5 ML VIAL ONE (16:53)
[2018-04-24] MEDS ORDERED: SIMETHICONE 40 MG/0.6 ML 30ML ONE (16:53)
[2018-04-24] MEDS: ACETAMINOPHEN 650MG/20.3ML UDC PO PRN (20:31)
[2018-04-25] VITALS (34 sets, daily range): BP systolic 118–164; BP diastolic 59–82
[2018-04-25] MEDS: BLOOD SUGAR DIAGNOSTIC STRIP TEST SCH ×4 (00:46→17:43)
[2018-04-25] MEDS: METOCLOPRAMIDE HCL 10MG/2ML VIAL IV SCH ×4 (00:46→17:25)
[2018-04-25] MEDS: ALBUTEROL (0.083%) 2.5MG/3ML NEB HHN SCH ×4 (02:28→21:01)
[2018-04-25] MEDS: ACETAMINOPHEN 650MG/20.3ML UDC PO PRN (02:52)
[2018-04-25] MEDS: SODIUM CHLORIDE 0.45% 1,000 ML IV SCH (05:34)
[2018-04-25] MEDS: INSULIN LISPRO 100 UNITS/ML SUBCUT SCH ×4 (05:46→17:45)
[2018-04-25] MEDS: VANCOMYCIN 750 MG PREMIX 150 ML IV SCH ×2 (08:46→21:09)
[2018-04-25] MEDS: PANTOPRAZOLE SODIUM 40 MG/VIAL IV SCH (08:46)
[2018-04-25] MEDS: ASPIRIN 81MG EC TABLET PO SCH (08:46)
[2018-04-25] MEDS: THIAMINE HCL 100MG TABLET PO SCH ×2 (08:46→17:25)
[2018-04-25] MEDS: INSULIN GLARGINE UD 100 UNITS/ML SYR SUBCUT SCH (09:22)
[2018-04-25] MEDS: IPRATROPIUM/ALBUTEROL 0.5-3(2.5)MG/3ML NEB INH PRN ×2 (12:55→16:50)
[2018-04-26] VITALS (12 sets, daily range): BP systolic 129–168; BP diastolic 68–86
[2018-04-26] MEDS: BLOOD SUGAR DIAGNOSTIC STRIP TEST SCH ×4 (00:33→18:03)
[2018-04-26] MEDS: INSULIN LISPRO 100 UNITS/ML SUBCUT SCH ×4 (00:49→18:03)
[2018-04-26] MEDS: SODIUM CHLORIDE 0.45% 1,000 ML IV SCH ×2 (01:55→13:43)
[2018-04-26] MEDS: ALBUTEROL (0.083%) 2.5MG/3ML NEB HHN SCH ×4 (02:41→20:42)
[2018-04-26] MEDS: METOCLOPRAMIDE HCL 10MG/2ML VIAL IV SCH ×4 (05:45→18:24)
[2018-04-26 07:33] LABS: BASOPHILS % 0.4 % (0.0-2.0); EOSINOPHILS % 5.5 % (0.0-5.0); HEMATOCRIT. 26.9 % (36.0-48.0); HEMOGLOBIN. 9.1 g/dL (12.0-16.0); LYMPHOCYTES % 22.6 % (20.0-50.0); MEAN CORPUSCULAR HEMOGLOBIN 28.9 pg (28.0-32.0); MEAN CORPUSCULAR VOLUME 85.9 fL (81.0-99.0); MONOCYTES % 7.8 % (2.0-8.0); NEUTROPHILS % 63.7 % (40.0-76.0); PLATELET 501 x1000/uL (130-400); RED BLOOD CELL COUNT 3.13 mill/uL (4.2-5.4); RED CELL DISTRIBUTION WIDTH 12.8 % (11.6-14.6)
[2018-04-26 07:58] LABS: CHLORIDE 105 mEq/L (98-107)
[2018-04-26] MEDS: THIAMINE HCL 100MG TABLET PO SCH ×2 (08:35→18:03)
[2018-04-26] MEDS: PANTOPRAZOLE SODIUM 40 MG/VIAL IV SCH (08:35)
[2018-04-26] MEDS: VANCOMYCIN 750 MG PREMIX 150 ML IV SCH ×2 (08:35→21:45)
[2018-04-26] MEDS: ASPIRIN 81MG EC TABLET PO SCH (08:35)
[2018-04-26] MEDS: INSULIN GLARGINE UD 100 UNITS/ML SYR SUBCUT SCH (10:05)
[2018-04-26 14:29] LABS: BG BASE EXCESS -2.3 mmol/L (-2.0-2.0); BG DEOXYHEMOGLOBIN 2.1 % (0.0-5.0); BG FRACTION INSPIRED OXYGEN 30; BG HCO3 ACT 20.5 mmol/L (22.0-26.0); BG METHEMOGLOBIN 0.5 % (0.0-1.5); BG OXYGEN SATURATION 97.9 % (92.0-98.5); BG OXYHEMOGLOBIN 97.4 % (94.0-97.0); BG PCO2 28.1 mmHg (35.0-45.0); BG PH 7.481 (7.350-7.450); BG PO2 110.3 mmHg (75.0-100.0); BG SAMPLE SITE RIGHT BRACHIAL; BG TIDAL VOLUME(mL) 500 mL; BG TOTAL HEMOGLOBIN 9.3 g/dL (12.0-18.0); BG VENT MODE VENT - A/C; BG VENT RATE 8 set
[2018-04-26] MEDS: ENOXAPARIN 40MG/0.4ML SYR SUBCUT SCH (18:03)
[2018-04-26] MEDS: CLONIDINE 0.1MG TABLET PO PRN (18:24)
[2018-04-26] MEDS: ACETAMINOPHEN 650MG/20.3ML UDC PO PRN (21:45)
[2018-04-27] VITALS (12 sets, daily range): BP systolic 140–157; BP diastolic 67–83
[2018-04-27] MEDS: BLOOD SUGAR DIAGNOSTIC STRIP TEST SCH ×5 (00:18→23:35)
[2018-04-27] MEDS: METOCLOPRAMIDE HCL 10MG/2ML VIAL IV SCH ×5 (00:26→23:42)
[2018-04-27] MEDS: INSULIN LISPRO 100 UNITS/ML SUBCUT SCH ×5 (00:30→23:45)
[2018-04-27] MEDS: ALBUTEROL (0.083%) 2.5MG/3ML NEB HHN SCH ×4 (01:56→20:25)
[2018-04-27] MEDS: SODIUM CHLORIDE 0.45% 1,000 ML IV SCH ×2 (07:14→23:42)
[2018-04-27] MEDS: VANCOMYCIN 750 MG PREMIX 150 ML IV SCH ×2 (09:30→20:53)
[2018-04-27] MEDS: PANTOPRAZOLE SODIUM 40 MG/VIAL IV SCH (09:30)
[2018-04-27] MEDS: THIAMINE HCL 100MG TABLET PO SCH ×2 (09:31→16:38)
[2018-04-27] MEDS: ASPIRIN 81MG EC TABLET PO SCH (09:31)
[2018-04-27] MEDS: INSULIN GLARGINE UD 100 UNITS/ML SYR SUBCUT SCH (09:32)
[2018-04-27] MEDS: ENOXAPARIN 40MG/0.4ML SYR SUBCUT SCH (16:38)
[2018-04-28] VITALS (13 sets, daily range): BP systolic 123–159; BP diastolic 61–79
[2018-04-28] MEDS: ALBUTEROL (0.083%) 2.5MG/3ML NEB HHN SCH ×4 (01:54→20:26)
[2018-04-28] MEDS: BLOOD SUGAR DIAGNOSTIC STRIP TEST SCH ×4 (05:20→21:18)
[2018-04-28] MEDS: INSULIN LISPRO 100 UNITS/ML SUBCUT SCH ×4 (05:26→21:20)
[2018-04-28] MEDS: METOCLOPRAMIDE HCL 10MG/2ML VIAL IV SCH ×3 (05:26→17:52)
[2018-04-28] MEDS: THIAMINE HCL 100MG TABLET PO SCH ×2 (09:27→17:52)
[2018-04-28] MEDS: PANTOPRAZOLE SODIUM 40 MG/VIAL IV SCH (09:27)
[2018-04-28] MEDS: ASPIRIN 81MG EC TABLET PO SCH (09:27)
[2018-04-28] MEDS: INSULIN GLARGINE UD 100 UNITS/ML SYR SUBCUT SCH (09:28)
[2018-04-28] MEDS: VANCOMYCIN 750 MG PREMIX 150 ML IV SCH ×2 (10:59→21:05)
[2018-04-28 14:02] LABS: CLARITY URINE CLEAR (CLEAR); COLOR URINE YELLOW (YELLOW); KETONES URINE NEGATIVE (NEGATIVE); LEUKOCYTE ESTERASE URINE NEGATIVE (NEGATIVE); NITRITE URINE NEGATIVE (NEGATIVE); OCCULT BLOOD URINE TRACE (NEGATIVE); PH URINE 6.5 (4.5-8.0); PROTEIN URINE TRACE (NEGATIVE); SPECIFIC GRAVITY URINE 1.011 (1.005-1.030)
[2018-04-28] MEDS: SODIUM CHLORIDE 0.45% 1,000 ML IV SCH (14:47)
[2018-04-28 15:39] LABS: BASOPHILS % 0.9 % (0.0-2.0); EOSINOPHILS % 7.2 % (0.0-5.0); HEMATOCRIT. 26.6 % (36.0-48.0); HEMOGLOBIN. 8.9 g/dL (12.0-16.0); LYMPHOCYTES % 21.2 % (20.0-50.0); MEAN CORPUSCULAR HEMOGLOBIN 29.1 pg (28.0-32.0); MEAN CORPUSCULAR VOLUME 86.8 fL (81.0-99.0); MEAN PLATELET VOLUME 7.8 fl (7.4-10.4); MONOCYTES % 9.8 % (2.0-8.0); NEUTROPHILS % 60.9 % (40.0-76.0); PLATELET 626 x1000/uL (130-400); RED BLOOD CELL COUNT 3.07 mill/uL (4.2-5.4); RED CELL DISTRIBUTION WIDTH 12.9 % (11.6-14.6)
[2018-04-28 15:46] LABS: CHLORIDE 104 mEq/L (98-107)
[2018-04-28] MEDS ORDERED: DEXTROSE 50% WATER 50ML SYRINGE IV PRN (16:45)
[2018-04-28] MEDS: ENOXAPARIN 40MG/0.4ML SYR SUBCUT SCH (17:52)
[2018-04-28] MEDS: ACETAMINOPHEN 650MG/20.3ML UDC PO PRN (21:05)
[2018-04-29] VITALS (12 sets, daily range): BP systolic 114–148; BP diastolic 48–78
[2018-04-29] MEDS: METOCLOPRAMIDE HCL 10MG/2ML VIAL IV SCH ×5 (00:26→23:42)
[2018-04-29] MEDS: ALBUTEROL (0.083%) 2.5MG/3ML NEB HHN SCH ×4 (03:56→20:56)
[2018-04-29 06:43] LABS: CHLORIDE 107 mEq/L (98-107)
[2018-04-29 06:49] LABS: BASOPHILS % 0.8 % (0.0-2.0); EOSINOPHILS % 5.7 % (0.0-5.0); HEMATOCRIT. 24.2 % (36.0-48.0); HEMOGLOBIN. 8.1 g/dL (12.0-16.0); MEAN CORPUSCULAR HEMOGLOBIN 28.7 pg (28.0-32.0); MEAN CORPUSCULAR VOLUME 85.4 fL (81.0-99.0); MEAN PLATELET VOLUME 7.7 fl (7.4-10.4); MONOCYTES % 9.4 % (2.0-8.0); NEUTROPHILS % 59.1 % (40.0-76.0); PLATELET 579 x1000/uL (130-400); RED BLOOD CELL COUNT 2.83 mill/uL (4.2-5.4); RED CELL DISTRIBUTION WIDTH 12.9 % (11.6-14.6)
[2018-04-29] MEDS: BLOOD SUGAR DIAGNOSTIC STRIP TEST SCH ×4 (08:22→23:42)
[2018-04-29] MEDS: INSULIN LISPRO 100 UNITS/ML SUBCUT SCH ×4 (09:11→23:41)
[2018-04-29] MEDS: VANCOMYCIN 750 MG PREMIX 150 ML IV SCH ×2 (09:12→20:29)
[2018-04-29] MEDS: THIAMINE HCL 100MG TABLET PO SCH ×2 (09:12→18:43)
[2018-04-29] MEDS: ASPIRIN 81MG EC TABLET PO SCH (09:12)
[2018-04-29] MEDS: PANTOPRAZOLE SODIUM 40 MG/VIAL IV SCH (09:12)
[2018-04-29] MEDS: SODIUM CHLORIDE 0.45% 1,000 ML IV SCH (09:13)
[2018-04-29] MEDS: INSULIN GLARGINE UD 100 UNITS/ML SYR SUBCUT SCH (09:36)
[2018-04-29] MEDS: ACETAMINOPHEN 650MG/20.3ML UDC PO PRN (13:00)
[2018-04-29] MEDS: ENOXAPARIN 40MG/0.4ML SYR SUBCUT SCH (18:44)
[2018-04-30] VITALS (12 sets, daily range): BP systolic 124–162; BP diastolic 63–92
[2018-04-30] MEDS: ALBUTEROL (0.083%) 2.5MG/3ML NEB HHN SCH ×4 (02:09→20:32)
[2018-04-30 05:20] LABS: BASOPHILS % 0.6 % (0.0-2.0); EOSINOPHILS % 4.3 % (0.0-5.0); HEMATOCRIT. 24.9 % (36.0-48.0); HEMOGLOBIN. 8.2 g/dL (12.0-16.0); LYMPHOCYTES % 19.1 % (20.0-50.0); MEAN CORPUSCULAR HEMOGLOBIN 28.7 pg (28.0-32.0); MEAN CORPUSCULAR VOLUME 87.4 fL (81.0-99.0); MEAN PLATELET VOLUME 7.9 fl (7.4-10.4); MONOCYTES % 8.5 % (2.0-8.0); NEUTROPHILS % 67.5 % (40.0-76.0); PLATELET 607 x1000/uL (130-400); RED BLOOD CELL COUNT 2.85 mill/uL (4.2-5.4); RED CELL DISTRIBUTION WIDTH 13.2 % (11.6-14.6)
[2018-04-30 05:49] LABS: CHLORIDE 104 mEq/L (98-107)
[2018-04-30] MEDS: BLOOD SUGAR DIAGNOSTIC STRIP TEST SCH ×4 (06:00→23:54)
[2018-04-30] MEDS: METOCLOPRAMIDE HCL 10MG/2ML VIAL IV SCH ×4 (06:13→23:53)
[2018-04-30] MEDS: SODIUM CHLORIDE 0.45% 1,000 ML IV SCH ×2 (06:13→18:02)
[2018-04-30] MEDS: INSULIN LISPRO 100 UNITS/ML SUBCUT SCH ×4 (06:15→23:54)
[2018-04-30] MEDS: ASPIRIN 81MG EC TABLET PO SCH (09:05)
[2018-04-30] MEDS: THIAMINE HCL 100MG TABLET PO SCH ×2 (09:05→17:41)
[2018-04-30] MEDS: PANTOPRAZOLE SODIUM 40 MG/VIAL IV SCH (09:05)
[2018-04-30] MEDS: VANCOMYCIN 750 MG PREMIX 150 ML IV SCH ×2 (10:29→21:05)
[2018-04-30] MEDS: INSULIN GLARGINE UD 100 UNITS/ML SYR SUBCUT SCH (10:34)
[2018-04-30] MEDS: ENOXAPARIN 40MG/0.4ML SYR SUBCUT SCH (17:41)
[2018-04-30] MEDS: ACETAMINOPHEN 650MG/20.3ML UDC PO PRN (18:50)
[2018-05-01] VITALS (12 sets, daily range): BP systolic 125–185; BP diastolic 64–87
[2018-05-01] MEDS: IPRATROPIUM/ALBUTEROL 0.5-3(2.5)MG/3ML NEB INH PRN (02:22)
[2018-05-01] MEDS: ALBUTEROL (0.083%) 2.5MG/3ML NEB HHN SCH ×4 (02:22→20:30)
[2018-05-01] MEDS: BLOOD SUGAR DIAGNOSTIC STRIP TEST SCH ×3 (06:00→18:05)
[2018-05-01] MEDS: METOCLOPRAMIDE HCL 10MG/2ML VIAL IV SCH ×3 (06:02→17:21)
[2018-05-01] MEDS: INSULIN LISPRO 100 UNITS/ML SUBCUT SCH ×3 (06:03→18:24)
[2018-05-01] MEDS: SODIUM CHLORIDE 0.45% 1,000 ML IV SCH (06:05)
[2018-05-01] MEDS: VANCOMYCIN 750 MG PREMIX 150 ML IV SCH ×2 (08:46→21:17)
[2018-05-01] MEDS: PANTOPRAZOLE SODIUM 40 MG/VIAL IV SCH (08:47)
[2018-05-01] MEDS: THIAMINE HCL 100MG TABLET PO SCH ×2 (08:47→17:21)
[2018-05-01] MEDS: ASPIRIN 81MG EC TABLET PO SCH (08:47)
[2018-05-01] MEDS: INSULIN GLARGINE UD 100 UNITS/ML SYR SUBCUT SCH (10:25)
[2018-05-01] MEDS: ACETAMINOPHEN 650MG/20.3ML UDC PO PRN (16:32)
[2018-05-01] MEDS: ENOXAPARIN 40MG/0.4ML SYR SUBCUT SCH (17:21)
[2018-05-01] MEDS: CLONIDINE 0.1MG TABLET PO PRN (18:00)
[2018-05-02] VITALS (11 sets, daily range): BP systolic 125–163; BP diastolic 61–88
[2018-05-02] MEDS: METOCLOPRAMIDE HCL 10MG/2ML VIAL IV SCH ×5 (00:35→23:05)
[2018-05-02] MEDS: BLOOD SUGAR DIAGNOSTIC STRIP TEST SCH ×5 (00:36→23:11)
[2018-05-02] MEDS: INSULIN LISPRO 100 UNITS/ML SUBCUT SCH ×5 (00:36→23:16)
[2018-05-02] MEDS: ALBUTEROL (0.083%) 2.5MG/3ML NEB HHN SCH ×4 (02:19→20:48)
[2018-05-02] MEDS: THIAMINE HCL 100MG TABLET PO SCH ×2 (09:17→17:05)
[2018-05-02] MEDS: PANTOPRAZOLE SODIUM 40 MG/VIAL IV SCH (09:17)
[2018-05-02] MEDS: VANCOMYCIN 750 MG PREMIX 150 ML IV SCH ×2 (09:18→20:28)
[2018-05-02] MEDS: ASPIRIN 81MG EC TABLET PO SCH (09:18)
[2018-05-02] MEDS: INSULIN GLARGINE UD 100 UNITS/ML SYR SUBCUT SCH (11:49)
[2018-05-02] MEDS: ACETAMINOPHEN 650MG/20.3ML UDC PO PRN (16:43)
[2018-05-02] MEDS: ENOXAPARIN 40MG/0.4ML SYR SUBCUT SCH (17:05)
[2018-05-02] MEDS: SODIUM CHLORIDE 0.45% 1,000 ML IV SCH (23:16)
[2018-05-03] VITALS (11 sets, daily range): BP systolic 120–168; BP diastolic 63–79
[2018-05-03] MEDS: ALBUTEROL (0.083%) 2.5MG/3ML NEB HHN SCH ×4 (03:17→21:02)
[2018-05-03] MEDS: METOCLOPRAMIDE HCL 10MG/2ML VIAL IV SCH ×3 (05:58→17:59)
[2018-05-03] MEDS: BLOOD SUGAR DIAGNOSTIC STRIP TEST SCH ×3 (06:00→17:47)
[2018-05-03] MEDS: INSULIN LISPRO 100 UNITS/ML SUBCUT SCH ×3 (06:08→17:59)
[2018-05-03] MEDS: IPRATROPIUM/ALBUTEROL 0.5-3(2.5)MG/3ML NEB INH PRN (08:20)
[2018-05-03] MEDS: ACETAMINOPHEN 650MG/20.3ML UDC PO PRN (09:07)
[2018-05-03] MEDS: ASPIRIN 81MG EC TABLET PO SCH (09:07)
[2018-05-03] MEDS: VANCOMYCIN 750 MG PREMIX 150 ML IV SCH ×2 (09:07→20:06)
[2018-05-03] MEDS: PANTOPRAZOLE SODIUM 40 MG/VIAL IV SCH (09:07)
[2018-05-03] MEDS: THIAMINE HCL 100MG TABLET PO SCH ×2 (09:07→17:59)
[2018-05-03] MEDS: INSULIN GLARGINE UD 100 UNITS/ML SYR SUBCUT SCH (10:27)
[2018-05-03] MEDS: ENOXAPARIN 40MG/0.4ML SYR SUBCUT SCH (17:59)
[2018-05-03] MEDS: SODIUM CHLORIDE 0.45% 1,000 ML IV SCH (19:56)
[2018-05-04] VITALS (12 sets, daily range): BP systolic 132–158; BP diastolic 61–132
[2018-05-04] MEDS: BLOOD SUGAR DIAGNOSTIC STRIP TEST SCH ×4 (00:23→17:57)
[2018-05-04] MEDS: METOCLOPRAMIDE HCL 10MG/2ML VIAL IV SCH ×4 (00:41→19:15)
[2018-05-04] MEDS: INSULIN LISPRO 100 UNITS/ML SUBCUT SCH ×4 (00:46→19:17)
[2018-05-04] MEDS: ALBUTEROL (0.083%) 2.5MG/3ML NEB HHN SCH ×4 (02:10→20:33)
[2018-05-04] MEDS: SODIUM CHLORIDE 0.45% 1,000 ML IV SCH ×2 (05:47→21:27)
[2018-05-04 06:30] LABS: BASOPHILS % 0.5 % (0.0-2.0); EOSINOPHILS % 2.9 % (0.0-5.0); HEMATOCRIT. 23.3 % (36.0-48.0); HEMOGLOBIN. 7.8 g/dL (12.0-16.0); LYMPHOCYTES % 17.1 % (20.0-50.0); MEAN CORPUSCULAR HEMOGLOBIN 28.9 pg (28.0-32.0); MEAN CORPUSCULAR VOLUME 86.8 fL (81.0-99.0); MEAN PLATELET VOLUME 7.8 fl (7.4-10.4); NEUTROPHILS % 69.5 % (40.0-76.0); PLATELET 558 x1000/uL (130-400); RED BLOOD CELL COUNT 2.68 mill/uL (4.2-5.4); RED CELL DISTRIBUTION WIDTH 12.9 % (11.6-14.6)
[2018-05-04 06:42] LABS: CHLORIDE 99 mEq/L (98-107)
[2018-05-04] MEDS: PANTOPRAZOLE SODIUM 40 MG/VIAL IV SCH (09:27)
[2018-05-04] MEDS: ASPIRIN 81MG EC TABLET PO SCH (09:28)
[2018-05-04] MEDS: VANCOMYCIN 750 MG PREMIX 150 ML IV SCH ×2 (09:29→20:58)
[2018-05-04] MEDS: THIAMINE HCL 100MG TABLET PO SCH ×2 (09:29→19:15)
[2018-05-04] MEDS ORDERED: INSULIN GLARGINE UD 100 UNITS/ML SYR SUBCUT SCH (10:00)
[2018-05-04] MEDS: ENOXAPARIN 40MG/0.4ML SYR SUBCUT SCH (19:16)
[2018-05-04] MEDS: ACETAMINOPHEN 650MG/20.3ML UDC PO PRN (19:48)
[2018-05-05] VITALS: BP 162/84
[2018-05-05] MEDS: BLOOD SUGAR DIAGNOSTIC STRIP TEST SCH (00:42)
[2018-05-05] MEDS: METOCLOPRAMIDE HCL 10MG/2ML VIAL IV SCH (00:42)
[2018-05-05] MEDS: INSULIN LISPRO 100 UNITS/ML SUBCUT SCH (01:05)
[2018-05-05] MEDS: CLONIDINE 0.1MG TABLET PO PRN (01:53)
[2018-05-05 02:00] VITALS: BP 163/78
[2018-05-05] MEDS: ALBUTEROL (0.083%) 2.5MG/3ML NEB HHN SCH (02:14)
[2018-05-05 03:24] VITALS: BP 171/72
[2018-05-05] MEDS ORDERED: INSULIN GLARGINE UD 100 UNITS/ML SYR SUBCUT SCH (10:00)
== END 2018-05-05 03:30 | DRG 3 ==
LOC: ER 10:54 → CVICU 11:46 → EDBEDREQ 11:54 → EDBEDREQSVC 11:54 → ENRESERV 12:52 → 5EST 04-25 22:20
PROVIDERS: ADMIT Internal Medicine; ATTEND Internal Medicine
PROC: 5A1955Z Respiratory Ventilation, Greater than 96 Consecutive Hours (ICD-10-PCS; principal; 2018-04-15)
PROC: 0BH18EZ Insertion of Endotracheal Airway into Trachea, Via Natural or Artificial Opening Endoscopic (ICD-10-PCS; 2018-04-15)
PROC: 02HV33Z Insertion of Infusion Device into Superior Vena Cava, Percutaneous Approach (ICD-10-PCS; 2018-04-16)
PROC: B548ZZA Ultrasonography of Superior Vena Cava, Guidance (ICD-10-PCS; 2018-04-16)
PROC: 4A00X4Z Measurement of Central Nervous Electrical Activity, External Approach (ICD-10-PCS; 2018-04-16)
PROC: 0GBJ0ZZ Excision of Thyroid Gland Isthmus, Open Approach (ICD-10-PCS; 2018-04-23)
PROC: 0B110F4 Bypass Trachea to Cutaneous with Tracheostomy Device, Open Approach (ICD-10-PCS; 2018-04-23)
PROC: 0DH68UZ Insertion of Feeding Device into Stomach, Via Natural or Artificial Opening Endoscopic (ICD-10-PCS; 2018-04-24)
DX: J96.00 Acute respiratory failure, unspecified whether with hypoxia or hypercapnia (principal); G92 Toxic encephalopathy; E43 Unspecified severe protein-calorie malnutrition; I67.82 Cerebral ischemia; Z99.11 Dependence on respirator [ventilator] status; E11.649 Type 2 diabetes mellitus with hypoglycemia without coma; E86.0 Dehydration; I10 Essential (primary) hypertension; E78.5 Hyperlipidemia, unspecified; E11.65 Type 2 diabetes mellitus with hyperglycemia; E11.51 Type 2 diabetes mellitus with diabetic peripheral angiopathy without gangrene; L03.032 Cellulitis of left toe; E87.5 Hyperkalemia; L89.159 Pressure ulcer of sacral region, unspecified stage; D64.9 Anemia, unspecified; K29.70 Gastritis, unspecified, without bleeding; L60.1 Onycholysis; R13.12 Dysphagia, oropharyngeal phase; Z79.4 Long term (current) use of insulin; Z68.28 Body mass index [BMI] 28.0-28.9, adult; Z79.899 Other long term (current) drug therapy; Z79.84 Long term (current) use of oral hypoglycemic drugs
CPT/HCPCS: 36415; 36569; 36600; 70551; 71045; 76937; 80048; 80061; 80202; 82375; 82550; 82553; 82575; 82728; 82805; 82962; 83036; 83540; 83550; 83880; 83930; 83935; 84134; 84156; 84300; 84439; 84443; 84478; 84484; 85379; 87070; 93005; 93306; 93970; 94002; 94003; 94640; 96361; 96374; 96375; 99291; A6261; C1725; C9113; J0330; J1650; J1815; J1956; J2060; J2250; J2405; J2704; J2765; J3010; J3370; J3490; J7030; J7040; J7042; J7050; J7060; J7611; J7620